=== PATIENT | female | born 1955 | race Caucasian/White ===

== ENCOUNTER 2018-05-21 21:55 | Emergency (ER) | payer MEDICAID ==
--- NOTE | 2018-05-21 22:57 | C.PDOC ---
History Of Present Illness 62-year-old female presents to the ED complaining of neck pain for 2 days. A few months ago, patient reports being diagnosed with a thyroid disease, and started on 25 mcg levothyroxine daily. Saw her PMD and was scheduled for an ultrasound of the thyroid, pending approval from insurance company. Now patient complains of 2 days of discomfort in her neck, mostly right-sided. Otherwise no associated swelling, inability to swallow, fever, chills, lethargy, tachycardia , or palpitations. Time Seen by Provider: 05/21/18 22:10 Chief Complaint (Nursing): ENT Problem History Per: Patient History/Exam Limitations: no limitations Onset/Duration Of Symptoms: Days (x2) Current Symptoms Are (Timing): Still Present Past Medical History Reviewed: Historical Data, Nursing Documentation, Vital Signs Vital Signs: Last Vital Signs Temp 98.4 F 05/21/18 22:02 Pulse 62 05/21/18 22:02 Resp 20 05/21/18 22:02 BP 157/88 H 05/21/18 22:02 Pulse Ox 99 05/21/18 23:54 - Medical History PMH: Hyperthyroidism Family History: States: No Known Family Hx - Social History Hx Tobacco Use: No Hx Alcohol Use: No Hx Substance Use: No - Immunization History Hx Tetanus Toxoid Vaccination: No Hx Influenza Vaccination: No Hx Pneumococcal Vaccination: No Review Of Systems Except As Marked, All Systems Reviewed And Found Negative. Constitutional: Negative for: Fever, Chills, Malaise ENT: Positive for: Throat Pain. Negative for: Throat Swelling Cardiovascular: Negative for: Palpitations, Other (tachycardia) Physical Exam - Physical Exam Appears: Well, Non-toxic, No Acute Distress Skin: Normal Color, Warm, Dry Head: Atraumatic, Normacephalic Eye(s): bilateral: Normal Inspection, PERRL, EOMI Oral Mucosa: Moist Neck: Normal ROM, Trachea Midline, No Midline Cervical Tenderness, No Paracervical Tenderness, Supple, No Other (goiter) Chest: Symmetrical Cardiovascular: Rhythm Regular, No Murmur Respiratory: Normal Breath Sounds, No Accessory Muscle Use, No Rales, No Rhonchi , No Wheezing Gastrointestinal/Abdominal: Soft, No Tenderness, No Distention Extremity: Bilateral: Atraumatic, Normal Color And Temperature, Normal ROM Pulses: Left Radial: Normal, Right Radial: Normal Neurological/Psych: Oriented x3, Normal Speech, Other (No focal deficits) Gait: Steady ED Course And Treatment - Laboratory Results Result Diagrams: 05/21/18 23:09 05/21/18 23:09 Lab Interpretation: Normal O2 Sat by Pulse Oximetry: 99 (RA) Pulse Ox Interpretation: Normal Progress Note: No indication to do emergency ultrasound at this time. Advised to follow up with PMD for further evaluation and US as outpatient. She should return for any new or worsening symptoms. Disposition Counseled Patient/Family Regarding: Studies Performed, Diagnosis, Need For Followup - Disposition Referrals: Maryjane Yanes PA-C [Physician Motion Picture Projectionist-Certified] - Disposition: HOME/ ROUTINE Disposition Time: 00:05 Condition: STABLE Instructions: Hypothyroidism (Underactive Thyroid) Forms: [employer] (Lao) - Clinical Impression Clinical Impression: Thyroid disorder - Scribe Statement The provider has reviewed the documentation as recorded by the Scribe (Rach Rubin) Provider Attestation: All medical record entries made by the Scribe were at my direction and personally dictated by me. I have reviewed the chart and agree that the record accurately reflects my personal performance of the history, physical exam, medical decision making, and the department course for this patient. I have also personally directed, reviewed, and agree with the discharge instructions and disposition.
[2018-05-21 23:13] LABS: BASO # 0.1 K/uL (0.0-0.2); BASO % 0.8 % (0.0-2.0); EOS # 0.1 K/uL (0.0-0.7); EOS % 1.2 % (0.0-4.0); HEMOGLOBIN 13.8 g/dL (11.0-16.0); LYMPH # 4.3 K/uL (1.0-4.3); MEAN CELL VOLUME 85.1 fL (81.0-99.0); MEAN CORPUSCULAR HEMOGLOBIN 29.8 pg (27.0-31.0); MONO # 0.5 K/uL (0.0-0.8); MONO % 5.3 % (0.0-10.0); NEUT % 44.7 % (50.0-75.0); RBC 4.63 Mil/uL (3.80-5.20); RED CELL DISTRIBUTION WIDTH 13.8 % (11.5-14.5); WHITE BLOOD COUNT 8.9 K/uL (4.8-10.8)
[2018-05-21 23:33] LABS: ALB/GLOB RATIO 1.5 (1.0-2.1); ALBUMIN 4.3 g/dL (3.5-5.0); ALT/SGPT 33 U/L (9-52); AST/SGOT 33 U/L (14-36); BLOOD UREA NITROGEN 13 mg/dL (7-17); CALCIUM 9.9 mg/dl (8.6-10.4); GFR AFRICAN-AMERICAN > 60; GFR NON-AFRICAN AMERICAN > 60
[2018-05-21 23:50] LABS: FREE T4 1.15 ng/dL (0.78-2.19)
[2018-05-22 00:16] VITALS: BP 126/84; PULSE 60; RESP 18; TEMP 98; O2SAT 97
== END 2018-05-22 00:16 | disposition home or self-care (01) ==
LOC: C.ER 21:55
DX: E07.9 Disorder of thyroid, unspecified (principal)